=== PATIENT | male | born 1960 | race Caucasian/White ===

== ENCOUNTER 2021-02-03 18:02 | Inpatient (IN) | payer OTHER ==
[~2021-02-03] VITALS: Ht 193 cm; Wt 136.1 kg
[2021-02-03] MEDS ORDERED: LAMICTAL XR200 MG PO (18:09)
[2021-02-03] MEDS ORDERED: TOPAMAX100 MG PO (18:10)
[2021-02-03] MEDS ORDERED: KEPPRA1000 MG PO (18:10)
[2021-02-03] MEDS ORDERED: KLONOPIN1 MG PO (18:10)
[2021-02-03 19:30] VITALS: BP 120/60
[2021-02-03 19:32] LABS: INFLUENZA TYPE A NEGATIVE (NEGATIVE); INFLUENZA TYPE B NEGATIVE (NEGATIVE); SARS-CoV-2 ANTIGEN NEGATIVE- SARS-COV-2 (NEGATIVE)
[2021-02-03 19:36] LABS: BASOPHILS 0.1 % (0-2); EOSINOPHILS 0.1 % (0-7); HEMATOCRIT 38.1 % (42.0-54.0); HEMOGLOBIN 12.2 g/dL (13.5-17.5); IMMATURE GRANULOCYTES 0.4 % (0-5); LYMPHOCYTE ABS# 1.83 10x3/uL (1.32-3.57); LYMPHOCYTES 11.5 % (15-50); MCH 27.4 pg (26.0-34.0); MCV 85.4 fL (80.0-100.0); MEAN PLATELET VOLUME 9.9 fL (7.4-10.4); MONOCYTES 5.3 % (2-11); NEUTROPHIL ABS# 13.13 10x3/uL (1.78-5.38); NEUTROPHILS 82.6 % (40-80); PLATELET COUNT 402 10x3/uL (130-400); RBC 4.46 10x6/uL (4.20-6.10); RDW 13.1 % (11.5-14.5); WBC 15.9 10x3/uL (4.8-10.8)
[2021-02-03 19:41] LABS: CALC OSMOLALITY 282 mosm/kg (275-300); CALCIUM 9.2 mg/dL (8.5-10.1); CARBON DIOXIDE 24.6 mmol/L (21.0-32.0); CHLORIDE - SERUM 104 mmol/L (98-107); CREATININE - SERUM 2.6 mg/dL (0.6-1.3); GLUCOSE 115 mg/dL (74-106); POTASSIUM - SERUM 4.2 mmol/L (3.5-5.1); SODIUM 138 mmol/L (136-145); UREA NITROGEN 29 mg/dL (7-18); eGFR NON AFRICAN AMERICAN 27 mL/min (90-120)
[2021-02-03 19:44] LABS: APTT 31.9 SECONDS (22.8-39.4); INR 1.38 (0.85-1.17); PROTIME 15.7 SECONDS (11.6-15.0)
[2021-02-03 20:02] LABS: ALBUMIN 2.9 g/dL (3.4-5.0); ALKALINE PHOSPHATASE 76 U/L (30-120); ALT (SGPT) 33 U/L (10-68); BILIRUBIN - TOTAL 0.37 mg/dL (0.2-1.3); CKMB 1.4 U/L (0.0-3.6); PROTEIN - SERUM 7.2 g/dL (6.4-8.2)
[2021-02-03 20:04] LABS: CREATINE KINASE 4660 UL (21-232)
[2021-02-03 20:06] VITALS: BP 116/63
[2021-02-03 20:07] LABS: BILIRUBIN NEGATIVE (NEGATIVE); KETONE NEGATIVE (NEGATIVE); NITRITE NEGATIVE (NEGATIVE); UROBILINOGEN NORMAL mg/dL (< 2)
[2021-02-03 20:14] LABS: BACTERIA MODERATE HPF (NONE SEEN); SQUAMOUS EPITHELIAL 0-5 HPF (0-4)
[2021-02-03 21:00] VITALS: BP 121/64
--- NOTE | 2021-02-03 21:58 | NUR ---
REPORT CALLED TO BUBBA ON MED 2
--- NOTE | 2021-02-03 22:10 | NUR ---
ASSISTED PATIENT WITH TRANSFER TO WHEELCHAIR FOR TRANSPORT TO BED ON FLOOR. PATIENT WALKED TO CHAIR AND SAT DOWN UNASSISTED WHEELCHAIR LOCKED ON BOTH SIDES PATIENT SAT WITH SUCH MOMENTUM THAT WHEELCHAIR TIPPED BACKWARDS. NURSE ASSISTED WHEELCHAIR/ PATIENT TO FLOOR.DR STONE NOTIFIED AND INSTRUCTED NURSE TO PASS ALONG TO MED2 NURSE BUBBA TO PERFORM NEURO CHECKS Q 4 HOURS UNTIL AM AND REPORT ANY CHANGES TO PCP. BUBBA NOTIFIED. VERBALIZED UNDERSTANDING
--- NOTE | 2021-02-03 22:35 | NUR ---
RECEIVED REPORT FROM ER, PT IS A&OX4, PLACED OS TELEMTRY, HISTORY AND MEDS COMPLETE, DENIES ANY NEEDS, BED IS LOW, SRX2, CALL LIGHT IN REACH, WILL CONTINUE PLAN OF CARE
[2021-02-04] VITALS (7 sets, daily range): BP systolic 100–121; BP diastolic 50–65; BMI 36.6; BMI 36.5
[2021-02-04 02:43] LABS: CKMB 1.8 U/L (0.0-3.6); CREATINE KINASE 4390 UL (21-232); TROPONIN-I 0.056 ng/mL (0.000-0.060)
[2021-02-04 07:40] LABS: BASOPHILS 0.2 % (0-2); EOSINOPHILS 0.8 % (0-7); HEMATOCRIT 34.8 % (42.0-54.0); HEMOGLOBIN 10.9 g/dL (13.5-17.5); IMMATURE GRANULOCYTES 0.2 % (0-5); LYMPHOCYTE ABS# 1.04 10x3/uL (1.32-3.57); LYMPHOCYTES 9.4 % (15-50); MCH 26.7 pg (26.0-34.0); MCHC 31.3 g/dL (31.0-37.0); MCV 85.1 fL (80.0-100.0); MEAN PLATELET VOLUME 9.9 fL (7.4-10.4); MONOCYTES 13.1 % (2-11); NEUTROPHILS 76.3 % (40-80); PLATELET COUNT 335 10x3/uL (130-400); RBC 4.09 10x6/uL (4.20-6.10); RDW 13.2 % (11.5-14.5)
[2021-02-04 08:04] LABS: ALBUMIN 2.3 g/dL (3.4-5.0); ALKALINE PHOSPHATASE 64 U/L (30-120); ALT (SGPT) 31 U/L (10-68); BILIRUBIN - TOTAL 0.27 mg/dL (0.2-1.3); CALC OSMOLALITY 282 mosm/kg (275-300); CALCIUM 8.4 mg/dL (8.5-10.1); CARBON DIOXIDE 22.6 mmol/L (21.0-32.0); CHLORIDE - SERUM 108 mmol/L (98-107); CKMB 1.5 U/L (0.0-3.6); CREATININE - SERUM 2.3 mg/dL (0.6-1.3); GLUCOSE 105 mg/dL (74-106); PROTEIN - SERUM 6.2 g/dL (6.4-8.2); SODIUM 140 mmol/L (136-145); TROPONIN-I 0.052 ng/mL (0.000-0.060); UREA NITROGEN 24 mg/dL (7-18); eGFR NON AFRICAN AMERICAN 31 mL/min (90-120)
[2021-02-04 08:05] LABS: CREATINE KINASE 3538 UL (21-232)
--- NOTE | 2021-02-04 09:34 | NUR ---
AM MEDS GIVEN AT THIS TIME WITH A SIP OF WATER. PT A/O X4, RESP EVEN AND NONLABORED ON RA. SR 72 ON TELE. RT AC INFUSING NS AT 125CC/HR. PT NPO FOR CARDIOLOGY CONSULT. ALL NEEDS MET, CALL LIGHT IN REACH.
[2021-02-04 13:38] LABS: CKMB 1.5 U/L (0.0-3.6); TROPONIN-I 0.035 ng/mL (0.000-0.060)
[2021-02-04 13:47] LABS: CREATINE KINASE 3004 UL (21-232)
--- NOTE | 2021-02-04 14:57 | NUR ---
PT RESTING COMFORTABLY IN BED, DENIES ANY NEEDS AT THIS TIME. CALL LIGHT REACH, WILL CONTINUE PLAN OF CARE.
--- NOTE | 2021-02-04 16:47 | NUR ---
CALLED PT'S MOTHER AVRIL AND UPDATED HER ON PLAN OF CARE.
--- NOTE | 2021-02-04 19:30 | NUR ---
RECEIVED REPORT, WILL ASSUME CARE OF PT, UP TO RESTROOM, DENIES ANY NEEDS, WILL CONTINUE PLAN OF CARE
[2021-02-05 01:56] VITALS: BP 113/68
--- NOTE | 2021-02-05 03:09 | NUR ---
I have reviewed this patient and I concur with the Shift Assessment completed by the Licensed Practical Nurse today this shift.
[2021-02-05 04:54] LABS: BASOPHILS 0.2 % (0-2); EOSINOPHILS 2.1 % (0-7); HEMATOCRIT 32.1 % (42.0-54.0); IMMATURE GRANULOCYTES 0.2 % (0-5); LYMPHOCYTE ABS# 0.82 10x3/uL (1.32-3.57); LYMPHOCYTES 9.2 % (15-50); MCH 26.4 pg (26.0-34.0); MCHC 31.2 g/dL (31.0-37.0); MCV 84.7 fL (80.0-100.0); MEAN PLATELET VOLUME 10.7 fL (7.4-10.4); MONOCYTES 12.4 % (2-11); NEUTROPHILS 75.9 % (40-80); PLATELET COUNT 366 10x3/uL (130-400); RBC 3.79 10x6/uL (4.20-6.10); RDW 13.2 % (11.5-14.5)
[2021-02-05 05:24] LABS: ALBUMIN 2.2 g/dL (3.4-5.0); ANION GAP 15.2 mmol/L (8-16); BILIRUBIN - TOTAL 0.21 mg/dL (0.2-1.3); CALCIUM 8.6 mg/dL (8.5-10.1); CARBON DIOXIDE 19.9 mmol/L (21.0-32.0); CREATININE - SERUM 2.2 mg/dL (0.6-1.3); POTASSIUM - SERUM 4.1 mmol/L (3.5-5.1); PROTEIN - SERUM 5.8 g/dL (6.4-8.2)
[2021-02-05 05:48] VITALS: BP 124/61
[2021-02-05 11:21] VITALS: Ht 193 cm; Wt 136.1 kg
--- NOTE | 2021-02-05 11:22 | NUR ---
INFORMED PT THAT WE NEED A URINE SAMPLE, PROVIDED PT WITH COLLECTION CUP. ALSO ASKED HIM TO CALL ME WHEN HE FINISHES VOIDING SO I CAN DO A BLADDER SCAN. PT VERBALIZED UNDERSTANDING.
[2021-02-05 13:06] VITALS: BP 119/63
[2021-02-05 13:43] LABS: CREATININE - URINE 187.4 mg/dL (30-125); PROTEIN - URINE 57.6 mg/dL (0.0-11.9)
--- NOTE | 2021-02-05 15:52 | NUR ---
POST VOID BLADDER SCAN DONE AT THIS TIME. PT HAS 101CC OF URINE LEFT IN BLADDER. PT JUST GOT FINISHED WITH SHOWER, HEALTH COACH PROVIDED COMPLETE LINEN CHANGE. ALL NEEDS METS, CALL LIGHT IN REACH.
--- NOTE | 2021-02-05 16:25 | EC ---
PATIENT:JACKIE TRINIDAD DATE OF SERVICE: 02/03/21 SEX: M MEDICAL RECORD: [id number] DATE OF : 56 LOCATION:D. D.212 AGE OF PATIENT: 60 ADMISSION DATE: 02/03/21 REFERRING PHYSICIAN: INTERPRETING PHYSICIAN: ADOLPH MCCARTHY MD ECHOCARDIOGRAM REPORT ECHO CHARGES 4 ECHO COMPLETE Date: 02/04/21 CLINICAL DIAGNOSIS: CHEST PAIN ECHOCARDIOGRAPHIC MEASUREMENTS (adult normal given) AC root (d.<3.7cm) 3.8 cm LV Septum d (<1.2 cm> 1.3 cm Valve Excursion 2.6 cm LV Septum (systole) 2.2 cm Left Atria (s.<4.0cm> 4.4 cm LVPW d(<1.2cm) 1.3 cm RV (d.<2.3cm) 4.9 cm LVPW (sytole) 1.6 cm LV diastole(<5.6CM) 5.0 cm MV E-F(>70mm/sec) cm LV systole 2.1 cm LVOT Diameter 2.2 cm MV exc.(>10mm) cm Est.ejection fraction (50-75%) 55 % DOPPLER: LVIT cm/sec A 73 cm/sec E 132 cm/sec LA cm/sec RVSP 28 mmHg LVOT 182 cm/sec AOP1/2T m/s Asc. Ao 204 cm/sec RVOT 110 cm/sec RA 4.8 cm/sec PA 113 cm/sec AV Gradient Peak 16 mmHg AV Mean 10 mmHg AV Area 3.0 cm MV Gradient Peak 5 mmHg MV Mean 1 mmHg MV Area cm COMMENTS: Supervisor Blast Furnace: Bolivar KEEN Coin Teller: Blanca Mccarthy TAPE# Pericardial Effusion Y DATE OF SERVICE: 02/05/2021 CLINICAL INDICATION: Chest pain. INTERPRETATION: Normal left ventricular chamber size and contractile function, ejection fraction 55% to 60%. FINDINGS: Left atrial chamber is mildly dilated. Right atrium and right ventricular chamber size and function appears normal. Aortic valve appears normal. No aortic stenosis or regurgitation. Mitral valve appears normal. ECHOCARDIOGRAM REPORT [id number] JACKIE TRINIDAD Mild mitral regurgitation. Tricuspid valve appears normal. Trivial tricuspid regurgitation. Pulmonic valve appeared normal. No pulmonary insufficiency. No pericardial effusion visualized. IMPRESSION: Normal left ventricular chamber size and contractile function with an ejection fraction of 55% to 60%. TRANSINT:[id number] Voice Confirmation ID: [id number] DOCUMENT ID: [id number] ADOLPH MCCARTHY MD at 1625 CC: [id number] DICTATION DATE: 02/05/21 0933 [employer]AL [employer] PROCESSING LABOURER: 02/05/21 1049 ADM IN [place] [id number] [place] [id number]
[2021-02-05 17:09] VITALS: BP 117/60
[2021-02-05 19:41] VITALS: BP 118/63
--- NOTE | 2021-02-05 19:45 | NUR ---
RECEIVED REPORT, WILL ASSUME CARE OF PT, RESTING, NO DISTRESS NOTICED AT THIS TIME, BED IS LOW, SRX2, CALL LIGHT IN REACH, WILL CONTINUE PLAN OF CARE
[2021-02-06 04:26] VITALS: BP 162/72
[2021-02-06 08:29] VITALS: BP 121/66
[2021-02-06 09:24] LABS: BASOPHILS 0.2 % (0-2); EOSINOPHILS 3.1 % (0-7); HEMATOCRIT 32.5 % (42.0-54.0); HEMOGLOBIN 10.1 g/dL (13.5-17.5); IMMATURE GRANULOCYTES 0.2 % (0-5); LYMPHOCYTE ABS# 1.26 10x3/uL (1.32-3.57); LYMPHOCYTES 14.3 % (15-50); MCH 26.6 pg (26.0-34.0); MCHC 31.1 g/dL (31.0-37.0); MCV 85.5 fL (80.0-100.0); MEAN PLATELET VOLUME 10.9 fL (7.4-10.4); MONOCYTES 10.7 % (2-11); NEUTROPHIL ABS# 6.29 10x3/uL (1.78-5.38); NEUTROPHILS 71.5 % (40-80); PLATELET COUNT 346 10x3/uL (130-400); RDW 13.2 % (11.5-14.5); WBC 8.8 10x3/uL (4.8-10.8)
[2021-02-06 09:26] LABS: CALC OSMOLALITY 284 mosm/kg (275-300); CALCIUM 8.8 mg/dL (8.5-10.1); CARBON DIOXIDE 22.8 mmol/L (21.0-32.0); CHLORIDE - SERUM 109 mmol/L (98-107); CREATININE - SERUM 1.9 mg/dL (0.6-1.3); GLUCOSE 102 mg/dL (74-106); POTASSIUM - SERUM 4.4 mmol/L (3.5-5.1); SODIUM 142 mmol/L (136-145); UREA NITROGEN 17 mg/dL (7-18); eGFR NON AFRICAN AMERICAN 38 mL/min (90-120)
[2021-02-06 09:58] LABS: ALBUMIN 2.1 g/dL (3.4-5.0); ALKALINE PHOSPHATASE 59 U/L (30-120); ALT (SGPT) 47 U/L (10-68); BILIRUBIN - DIRECT 0.11 mg/dL (0.00-0.30); BILIRUBIN - INDIRECT 0.16 mg/dL (0.00-1.00); BILIRUBIN - TOTAL 0.27 mg/dL (0.2-1.3); PROTEIN - SERUM 5.9 g/dL (6.4-8.2)
[2021-02-06 09:59] LABS: CREATINE KINASE 733 UL (21-232)
[2021-02-06 10:00] LABS: CKMB 0.9 U/L (0.0-3.6)
[2021-02-06 12:41] VITALS: BP 116/66
--- NOTE | 2021-02-06 14:02 | NUR ---
PT RESTING COMFORTABLY IN BED, NO CHANGES TO RT GROIN FROM PREVIOUS ASSESSMENT. BEDREST IS UP, ALL NEEDS MET, CALL LIGHT IN REACH.
[2021-02-06 17:35] VITALS: BP 106/61
[2021-02-06 20:00] VITALS: BP 124/70
--- NOTE | 2021-02-07 05:02 | NUR ---
2030- HER TO ROUND WITH PT. NO CHANGES MADE. WILL CONTINUE TO MONITOR. PT DENIES ANY PAIN OR NEEDS AT PRESENT. WILL CONTINUE TO MONITOR.
--- NOTE | 2021-02-07 05:03 | NUR ---
AWAKE IN ROOM. DENIES ANY NEEDS.
[2021-02-07 06:17] LABS: BASOPHILS 0.3 % (0-2); EOSINOPHILS 3.5 % (0-7); HEMATOCRIT 31.3 % (42.0-54.0); HEMOGLOBIN 9.9 g/dL (13.5-17.5); IMMATURE GRANULOCYTES 0.3 % (0-5); LYMPHOCYTE ABS# 1.12 10x3/uL (1.32-3.57); MCH 26.7 pg (26.0-34.0); MCHC 31.6 g/dL (31.0-37.0); MCV 84.4 fL (80.0-100.0); MEAN PLATELET VOLUME 10.5 fL (7.4-10.4); MONOCYTES 9.2 % (2-11); NEUTROPHIL ABS# 6.97 10x3/uL (1.78-5.38); NEUTROPHILS 74.7 % (40-80); PLATELET COUNT 350 10x3/uL (130-400); RBC 3.71 10x6/uL (4.20-6.10); RDW 13.2 % (11.5-14.5); WBC 9.3 10x3/uL (4.8-10.8)
[2021-02-07 06:49] LABS: ALBUMIN 2.1 g/dL (3.4-5.0); BILIRUBIN - TOTAL 0.24 mg/dL (0.2-1.3); CALCIUM 8.8 mg/dL (8.5-10.1); CARBON DIOXIDE 19.2 mmol/L (21.0-32.0); CREATININE - SERUM 1.9 mg/dL (0.6-1.3); POTASSIUM - SERUM 4.2 mmol/L (3.5-5.1); PROTEIN - SERUM 5.8 g/dL (6.4-8.2)
[2021-02-07 07:00] VITALS: BP 121/64
--- NOTE | 2021-02-07 11:24 | MORECARE ---
CASE MANAGEMENT DISCHARGE SUMMARY PATIENT: JACKIE TRINIDAD UNIT: [id number] ADM DATE: 02/03/21 AGE: 60 : 56 SEX: M ROOM/BED: D.2126 AUTHOR: RAZIA,DOC PHYSICIAN: REFERRING PHYSICIAN: PATO LUND MD DATE OF SERVICE: 02/07/21 Case Management Discharge Planning Summary COMMENTS ENTERED DATE: 02/07/21 8:38 CT COMMENT TYPE: Discharge Planning REVIEWER: Etelvina Tejeda CM met with patient to assess discharge plan needs. Patient lives at home with his mother. He plans to return home with no services needed and feels this is a safe discharge. Patient states she is independent with ambulation and ADLs. CM discussed the availability of home health services including home oxygen and medical equipment should that be needed. Patient declined HHS, SNF, IPR, and DME services at this time and is satisfied with DC plan. He states he can afford his medications and has reliable transportation to and from medical appointments. His mother, Tita Trinidad ([phone]) will provide transportation when patient is discharged. CM will continue to follow and assist as needed. ENTERED DATE: 02/07/21 7:57 CT COMMENT TYPE: Discharge Planning REVIEWER: Viviana Bañuelos Received a call from Sheila with [employer]. Sheila states she is available to assist with discharge planning/needs by calling [phone] M-F 8am-4PM. DCP REVIEW SUMMARY ANTICIPATED D/C DATE: 02/07/2021 EXPECTED LOS : 4 CASE STATUS: DCP Initiated INITIAL REVIEW: 02/03/2021 INITIAL REVIEWER: Etelvina Tejeda FINAL DISCHARGE DISPOSITION: 01 : Home or Self Care (Routine Discharge) FINAL REVIEWER: FINAL REVIEW DATE: DCP Focus Questions & Answers DCP Screen QUESTION: ANSWER High Risk Factors: : None Walking limitation: Patient stated self rated walking limitation present? : No Age: : 43 - 62 Prior living environment: : Lives with others Disability ranking: : Grade 2: Slight disability DCP Evaluation QUESTION: ANSWER Patient and/or caregiver agree upon recommended discharge plan? : Yes Family / Caregiver's ability to cope with chronic illness: : a. Adequate (ability to meet patient's medical needs, ensures patient attends medical appts.) Patient's current cognitive status: : Alert Patient's current cognitive status: : *Oriented to person, place, situation, time and present Patient's ability to cope with chronic illness : d. No chronic illness Patient gives permission to discuss discharge plans with: (name, relationship and number) : Mother (Tita Trinidad) [phone] Does the patient have the ability to pay for or attain post discharge needs / services? : N/A Functional screen assessment: : Basic needs can adequately be met by self Family / Caregiver's ability to cope with chronic illness: : a. Adequate (ability to meet patient's medical needs, ensures patient attends medical appts.) Physical Status: : Independent with ADL's Equipment needed for post hospitalization: : None Is there a likelihood that the patient will require additional services to return to the preadmission environment? : No Living Arrangements: : Home with Parents Other Equipment comments: : Patient states no equipment will be needed. Results of this evaluation have been discussed with: : Patient Patient with capacity for self-care or can be cared for in same environment as prior to hospitalization? : Yes Living arrangements comments: : Lives at home with his mother Baseline cognitive status: : Alert Baseline cognitive status: : *Oriented to person, place, situation, time and present Physical environment modification needed / anticipated for discharge: : No Medication Management: : Patient states can afford medications Planned post hospital services available for patient? : N/A Pharmacy name(s): : [facility] Planned post hospital services covered by insurance plan? : N/A Does Patient have transportation to get home and to follow-up medical appointments when discharged from the hospital? : Yes Would patient like to participate in any Care Coordination programs (if applicable): : Not applicable Comments: : Transportation provided by his mother Does the patient have electricity at home? : Yes Does the patient have running water in their house? : Yes Equipment in use: : None Mental health screen: : No mental health history DCP Re-evaluation QUESTION: ANSWER Would patient like to participate in any Care Coordination programs (if applicable): : Not applicable PATIENT: JACKIE TRINIDAD ENCOUNTER: [id number] MEDICAL RECORD#: [id number] ADMISSION DATE: 02/03/2021 DISCHARGE DATE: ATTENDING MD: DEENA: AGE: 60 MARITAL STATUS: S DC PLAN ID: [id number] FACILITY: [facility] PRINTED ON: 02/07/21 11:24 CT All edits/amendments must be made on the electronic document DICTATION DATE: 02/07/211123 PRODUCT INTRODUCTION MANAGER: TWILA 02/07/211123 RPT#: [id number] DC DATE: STATUS: ADM IN [facility] [address] [place] [address] END OF REPORT
[2021-02-07 11:30] VITALS: BP 120/66
--- NOTE | 2021-02-07 12:20 | MORECARE ---
CASE MANAGEMENT DISCHARGE SUMMARY PATIENT: JACKIE TRINIDAD UNIT: [id number] ADM DATE: 02/03/21 AGE: 60 : 56 SEX: M ROOM/BED: D.2126 AUTHOR: RAZIA,DOC PHYSICIAN: REFERRING PHYSICIAN: PATO LUND MD DATE OF SERVICE: 02/07/21 Case Management Discharge Planning Summary COMMENTS ENTERED DATE: 02/07/21 8:38 CT COMMENT TYPE: Discharge Planning REVIEWER: Etelvina Tejeda CM met with patient to assess discharge plan needs. Patient lives at home with his mother. He plans to return home with no services needed and feels this is a safe discharge. Patient states she is independent with ambulation and ADLs. CM discussed the availability of home health services including home oxygen and medical equipment should that be needed. Patient declined HHS, SNF, IPR, and DME services at this time and is satisfied with DC plan. He states he can afford his medications and has reliable transportation to and from medical appointments. His mother, Tita Trinidad ([phone]) will provide transportation when patient is discharged. CM will continue to follow and assist as needed. ENTERED DATE: 02/07/21 7:57 CT COMMENT TYPE: Discharge Planning REVIEWER: Viviana Bañuelos Received a call from Sheila with [employer]. Sheila states she is available to assist with discharge planning/needs by calling [phone] M-F 8am-4PM. DCP REVIEW SUMMARY ANTICIPATED D/C DATE: 02/07/2021 EXPECTED LOS : 4 CASE STATUS: DCP Initiated INITIAL REVIEW: 02/03/2021 INITIAL REVIEWER: Etelvina Tejeda FINAL DISCHARGE DISPOSITION: 01 : Home or Self Care (Routine Discharge) FINAL REVIEWER: FINAL REVIEW DATE: DCP Focus Questions & Answers DCP Screen QUESTION: ANSWER High Risk Factors: : None Walking limitation: Patient stated self rated walking limitation present? : No Age: : 45 - 62 Prior living environment: : Lives with others Disability ranking: : Grade 2: Slight disability DCP Evaluation QUESTION: ANSWER Patient and/or caregiver agree upon recommended discharge plan? : Yes Family / Caregiver's ability to cope with chronic illness: : a. Adequate (ability to meet patient's medical needs, ensures patient attends medical appts.) Patient's current cognitive status: : Alert Patient's current cognitive status: : *Oriented to person, place, situation, time and present Patient's ability to cope with chronic illness : d. No chronic illness Patient gives permission to discuss discharge plans with: (name, relationship and number) : Mother (Tita Trinidad) [phone] Does the patient have the ability to pay for or attain post discharge needs / services? : N/A Functional screen assessment: : Basic needs can adequately be met by self Family / Caregiver's ability to cope with chronic illness: : a. Adequate (ability to meet patient's medical needs, ensures patient attends medical appts.) Physical Status: : Independent with ADL's Equipment needed for post hospitalization: : None Is there a likelihood that the patient will require additional services to return to the preadmission environment? : No Living Arrangements: : Home with Parents Other Equipment comments: : Patient states no equipment will be needed. Results of this evaluation have been discussed with: : Patient Patient with capacity for self-care or can be cared for in same environment as prior to hospitalization? : Yes Living arrangements comments: : Lives at home with his mother Baseline cognitive status: : Alert Baseline cognitive status: : *Oriented to person, place, situation, time and present Physical environment modification needed / anticipated for discharge: : No Medication Management: : Patient states can afford medications Planned post hospital services available for patient? : N/A Pharmacy name(s): : [facility] Planned post hospital services covered by insurance plan? : N/A Does Patient have transportation to get home and to follow-up medical appointments when discharged from the hospital? : Yes Would patient like to participate in any Care Coordination programs (if applicable): : Not applicable Comments: : Transportation provided by his mother Does the patient have electricity at home? : Yes Does the patient have running water in their house? : Yes Equipment in use: : None Mental health screen: : No mental health history DCP Re-evaluation QUESTION: ANSWER Would patient like to participate in any Care Coordination programs (if applicable): : Not applicable PATIENT: JACKIE TRINIDAD ENCOUNTER: [id number] MEDICAL RECORD#: [id number] ADMISSION DATE: 02/03/2021 DISCHARGE DATE: ATTENDING MD: DEENA: AGE: 60 MARITAL STATUS: S DC PLAN ID: [id number] FACILITY: [facility] PRINTED ON: 02/07/21 12:20 CT All edits/amendments must be made on the electronic document DICTATION DATE: 02/07/211218 VAN DRIVER: TWILA 02/07/211218 RPT#: [id number] DC DATE: STATUS: ADM IN [facility] [address] [place] [address] END OF REPORT
[2021-02-07 16:00] VITALS: BP 126/63
[2021-02-07 20:00] VITALS: BP 133/65
[2021-02-08] VITALS: BP 110/65
[2021-02-08 04:00] VITALS: BP 134/65
--- NOTE | 2021-02-08 05:45 | NUR ---
I have reviewed this patient and I concur with the Shift Assessment completed by the Licensed Practical Nurse today this shift.
[2021-02-08 05:55] LABS: BASOPHILS 0.4 % (0-2); EOSINOPHILS 3.5 % (0-7); HEMATOCRIT 30.5 % (42.0-54.0); HEMOGLOBIN 9.6 g/dL (13.5-17.5); IMMATURE GRANULOCYTES 0.2 % (0-5); LYMPHOCYTE ABS# 1.05 10x3/uL (1.32-3.57); LYMPHOCYTES 11.2 % (15-50); MCH 26.7 pg (26.0-34.0); MCHC 31.5 g/dL (31.0-37.0); MCV 84.7 fL (80.0-100.0); MEAN PLATELET VOLUME 10.4 fL (7.4-10.4); MONOCYTES 10.4 % (2-11); NEUTROPHIL ABS# 6.94 10x3/uL (1.78-5.38); NEUTROPHILS 74.3 % (40-80); PLATELET COUNT 346 10x3/uL (130-400); RDW 13.3 % (11.5-14.5); WBC 9.4 10x3/uL (4.8-10.8)
[2021-02-08 06:18] LABS: ANION GAP 13.4 mmol/L (8-16); BILIRUBIN - TOTAL 0.3 mg/dL (0.2-1.3); CALCIUM 8.9 mg/dL (8.5-10.1); CARBON DIOXIDE 22.6 mmol/L (21.0-32.0); CREATININE - SERUM 1.7 mg/dL (0.6-1.3); MAGNESIUM - SERUM 2.1 mg/dL (1.8-2.4); PHOSPHOROUS 2.9 mg/dL (2.5-4.9); PROTEIN - SERUM 5.8 g/dL (6.4-8.2); URIC ACID 5.7 mg/dL (2.6-7.2)
--- NOTE | 2021-02-08 07:00 | NUR ---
PT LYING IN BED. RESP EVEN AND UNLABORED. AAOX4. PT DENIES NEEDS AT THIS TIME. CLIR. BED IN LOWEST POSITION. SIDE RAILS X2
[2021-02-08 08:17] VITALS: BP 135/66
[2021-02-08 11:40] VITALS: BP 113/60
--- NOTE | 2021-02-08 16:29 | NUR ---
I have reviewed this patient and I concur with the Shift Assessment completed by the Licensed Practical Nurse today this shift.
--- NOTE | 2021-02-08 17:11 | NUR ---
PT DC HOME WITH FAMILY MEMBER. IV DC. IV CATH TIP INTACT. DC INSTRUCTIONS PROVIDED VERBALLY AND WRITTEN. PT VERBALIZED UNDERSTANDING
--- NOTE | 2021-02-08 19:50 | MORECARE ---
CASE MANAGEMENT DISCHARGE SUMMARY PATIENT: JACKIE TRINIDAD UNIT: [id number] ADM DATE: 02/03/21 AGE: 60 : 56 SEX: M ROOM/BED: D.2126 AUTHOR: RAZIA,DOC PHYSICIAN: REFERRING PHYSICIAN: PATO LUND MD DATE OF SERVICE: 02/08/21 Case Management Discharge Planning Summary COMMENTS ENTERED DATE: 02/07/21 8:38 CT COMMENT TYPE: Discharge Planning REVIEWER: Etelvina Tejeda CM met with patient to assess discharge plan needs. Patient lives at home with his mother. He plans to return home with no services needed and feels this is a safe discharge. Patient states she is independent with ambulation and ADLs. CM discussed the availability of home health services including home oxygen and medical equipment should that be needed. Patient declined HHS, SNF, IPR, and DME services at this time and is satisfied with DC plan. He states he can afford his medications and has reliable transportation to and from medical appointments. His mother, Tita Trinidad ([phone]) will provide transportation when patient is discharged. CM will continue to follow and assist as needed. ENTERED DATE: 02/07/21 7:57 CT COMMENT TYPE: Discharge Planning REVIEWER: Viviana Bañuelos Received a call from Sheila with [employer]. Sheila states she is available to assist with discharge planning/needs by calling [phone] M-F 8am-4PM. DCP REVIEW SUMMARY ANTICIPATED D/C DATE: 02/07/2021 EXPECTED LOS : 4 CASE STATUS: DCP Initiated INITIAL REVIEW: 02/03/2021 INITIAL REVIEWER: Etelvina Tejeda FINAL DISCHARGE DISPOSITION: 01 : Home or Self Care (Routine Discharge) FINAL REVIEWER: FINAL REVIEW DATE: DCP Focus Questions & Answers DCP Screen QUESTION: ANSWER High Risk Factors: : None Walking limitation: Patient stated self rated walking limitation present? : No Age: : 45 - 64 Prior living environment: : Lives with others Disability ranking: : Grade 2: Slight disability DCP Evaluation QUESTION: ANSWER Patient and/or caregiver agree upon recommended discharge plan? : Yes Family / Caregiver's ability to cope with chronic illness: : a. Adequate (ability to meet patient's medical needs, ensures patient attends medical appts.) Patient's current cognitive status: : Alert Patient's current cognitive status: : *Oriented to person, place, situation, time and present Patient's ability to cope with chronic illness : d. No chronic illness Patient gives permission to discuss discharge plans with: (name, relationship and number) : Mother (Tita Trinidad) [phone] Does the patient have the ability to pay for or attain post discharge needs / services? : N/A Functional screen assessment: : Basic needs can adequately be met by self Family / Caregiver's ability to cope with chronic illness: : a. Adequate (ability to meet patient's medical needs, ensures patient attends medical appts.) Physical Status: : Independent with ADL's Equipment needed for post hospitalization: : None Is there a likelihood that the patient will require additional services to return to the preadmission environment? : No Living Arrangements: : Home with Parents Other Equipment comments: : Patient states no equipment will be needed. Results of this evaluation have been discussed with: : Patient Patient with capacity for self-care or can be cared for in same environment as prior to hospitalization? : Yes Living arrangements comments: : Lives at home with his mother Baseline cognitive status: : Alert Baseline cognitive status: : *Oriented to person, place, situation, time and present Physical environment modification needed / anticipated for discharge: : No Medication Management: : Patient states can afford medications Planned post hospital services available for patient? : N/A Pharmacy name(s): : [facility] Planned post hospital services covered by insurance plan? : N/A Does Patient have transportation to get home and to follow-up medical appointments when discharged from the hospital? : Yes Would patient like to participate in any Care Coordination programs (if applicable): : Not applicable Comments: : Transportation provided by his mother Does the patient have electricity at home? : Yes Does the patient have running water in their house? : Yes Equipment in use: : None Mental health screen: : No mental health history DCP Re-evaluation QUESTION: ANSWER Would patient like to participate in any Care Coordination programs (if applicable): : Not applicable PATIENT: JACKIE TRINIDAD ENCOUNTER: [id number] MEDICAL RECORD#: [id number] ADMISSION DATE: 02/03/2021 DISCHARGE DATE: 02/08/2021 ATTENDING MD: DEENA: AGE: 60 MARITAL STATUS: S DC PLAN ID: [id number] FACILITY: [facility] PRINTED ON: 02/08/21 19:49 CT All edits/amendments must be made on the electronic document DICTATION DATE: 02/08/211948 INTENSIVE CARE AMBULANCE PARAMEDIC: TWILA 02/08/211948 RPT#: [id number] DC DATE:02/08/21 STATUS: DIS IN [facility] [address] [place] [address] END OF REPORT
== END 2021-02-08 16:00 | disposition home or self-care (01) | DRG 683 ==
LOC: D.ER 18:02 → D.M2 21:42
PROVIDERS: Family Medicine; Internal Medicine; ADMIT Emergency Medicine; ATTEND Emergency Medicine
DX: N17.9 Acute kidney failure, unspecified (principal); N39.0 Urinary tract infection, site not specified; M62.82 Rhabdomyolysis; E86.0 Dehydration; R07.89 Other chest pain; G40.909 Epilepsy, unspecified, not intractable, without status epilepticus; E66.9 Obesity, unspecified; Z68.36 Body mass index [BMI] 36.0-36.9, adult; Z87.891 Personal history of nicotine dependence

== ENCOUNTER 2021-02-22 10:45 | Outpatient (CLI) | payer OTHER ==
[~2021-02-22] VITALS: Ht 193 cm; Wt 135.5 kg
[~2021-02-22 10:45] MED LIST: KEPPRA1000 MG PO; KLONOPIN1 MG PO; LAMICTAL XR200 MG PO; TOPAMAX100 MG PO
[2021-02-22 11:53] VITALS: BP 138/78; Ht 193 cm; Wt 135.5 kg
--- NOTE | 2021-02-22 16:09 | NUR ---
1500 PT ARRIVED TO ROOM. NO IV IN PLACE AND RECIEVED A ICE PACK TO RIGHT ARM NEAR RECENT IV SITE. SMALL AMT OF SWELLING. PT GIVEN 20OZ CUP OF WATER TO DRINK. DENIES PAIN. DISCHARGE ORDERS GIVEN TO NURSE. INSTRUCTIONS FOR CONTRAST MEDIUM EXTRAVASTION D/C INSTRUCTIONS. FAMILY AT BEDSIDE. PT SLIGHTLY UNSTEADY ON FEET. IN W/C D/C HOME
== END 2021-02-22 15:25 | disposition home or self-care (01) ==
LOC: D.CT 10:45
PROVIDERS: ATTEND Nurse Practitioner Family
DX: N17.9 Acute kidney failure, unspecified (principal); N20.0 Calculus of kidney

== ENCOUNTER → 2021-04-05 16:32 | Outpatient (CLI) | payer OTHER ==
[2021-03-02 15:49] VITALS: BMI 34.7
[2021-04-05 16:56] LABS: BASOPHILS 0.7 % (0-2); EOSINOPHILS 6.6 % (0-7); HEMATOCRIT 42.1 % (42.0-54.0); HEMOGLOBIN 13.4 g/dL (13.5-17.5); LYMPHOCYTES 21.1 % (15-50); MCH 26.7 pg (26.0-34.0); MCHC 31.9 g/dL (31.0-37.0); MCV 83.7 fL (80.0-100.0); MEAN PLATELET VOLUME 8.4 fL (7.4-10.4); NEUTROPHILS 64.6 % (40-80); RBC 5.03 10x6/uL (4.20-6.10); WBC 6.5 10x3/uL (4.8-10.8)
[2021-04-05 17:02] LABS: PLATELET COUNT 243 10x3/uL (130-400)
[2021-04-05 17:09] LABS: ALBUMIN 3.9 g/dL (3.4-5.0); ANION GAP 9.2 mmol/L (8-16); BILIRUBIN - TOTAL 0.27 mg/dL (0.2-1.3); CALCIUM 9.5 mg/dL (8.5-10.1); CARBON DIOXIDE 30.2 mmol/L (21.0-32.0); CREATININE - SERUM 1.5 mg/dL (0.6-1.3); POTASSIUM - SERUM 4.4 mmol/L (3.5-5.1); PROTEIN - SERUM 7.4 g/dL (6.4-8.2)
== END | disposition home or self-care (01) ==
LOC: D.LAB 16:32
PROVIDERS: ATTEND Psychiatry & Neurology Neurology
DX: R56.9 Unspecified convulsions (principal)